=== PATIENT | female | born 1990 | race Caucasian/White ===

== ENCOUNTER → 2017-06-01 | Outpatient (CLI) | payer BC ==
[2017-06-05 06:41] LABS: PROLACTIN 19.3 ng/mL
== END ==
LOC: LAB 07:46
PROVIDERS: ATTEND Obstetrics & Gynecology
DX: Z31.69 Encounter for other general counseling and advice on procreation (principal); N92.6 Irregular menstruation, unspecified; N94.0 Mittelschmerz
CPT/HCPCS: 36415; 82670; 83001; 84146

== ENCOUNTER → 2017-07-03 | Outpatient (CLI) | payer BC ==
--- NOTE | 2017-07-03 13:58 | Procedure/Intervention Note ---
Procedure Note Preoperative Date of Service: Jul 03, 2017 Time of Procedure: 13:10 Indication ovulatory pain, tubal occlusion Risk/Time Out Risk and benefits explained to patient or legal guardian, verbal and written consent given. Time out performed, verified correct patient, correct procedure, correct site, and consent documented. Technique with informed consent, the patient was taken to the radiology suite in stable condition. She was moved to the end of the table and a speculum was placed in the vagina. The cervix was visualized and found to be normal without bleeding or discharge It was cleaned with betadine and then grasped with a tenaculum. os was then entered with a uterine sound. It was found to be slightly tortuous. I then placed the HSG catheter and inflated the balloon. The speculum and the tenaculum was removed from the cervix. I then injected the dye into the uterus. 7 ml used. There was bilateral spillage with no evidence of intrauterine pathology. Patient tolerated the procedure well. Instructions given. Naproxen and ultram called in for 5 days in case of pain and cramping. Prep/Sedation Prepartation: Povidone-iodine Sedation: none Estimated Blood Loss Less than 1 mL: Yes Complications none stable and dc home MARIN SCHWARZ DO Jul 03, 2017 1:58 pm
--- NOTE | 2017-07-03 15:29 | Diagnostic Imaging Report ---
INDICATION: Infertility. FINDINGS: The hysterosalpingogram was performed by Dr. Charlotte Booth. 57 seconds of fluoroscopy time was utilized. Multiple images demonstrate good opacification of the endometrial canal. No filling defects are seen. There is prompt filling of the bilateral fallopian tubes with free spillage of contrast from the fimbrial ends. IMPRESSION: Bilateral fallopian tube patency. Dictated by: Dictated on workstation # [id number]
== END ==
LOC: RAD 12:33
PROVIDERS: ATTEND Obstetrics & Gynecology
DX: N97.1 Female infertility of tubal origin (principal); N94.0 Mittelschmerz
CPT/HCPCS: 58340; 74740

== ENCOUNTER 2018-02-09 13:01 | Emergency (ER) | payer BC ==
[~2018-02-09] VITALS: Ht 165.1 cm; Wt 87.1 kg
--- OUTSIDE RECORDS SUMMARY | 2018-02-09 13:17 | XMS REPORT | Continuity of Care Document ---
Author Author [facility] Organization [facility] Address Unknown Phone Unavailable Allergies Active Description Code Type Severity Reaction Onset Reported/Identified Relationship to Patient Clinical Status Yes No Known Drug Allergies [id number] Drug Allergy Unknown N/A 07/03/2017 Medications There is no data. Problems Date Dx Coded Attending Type Code Diagnosis Diagnosed By 11/26/2014 BI CONNOLLY DO Ot 300.00 ANXIETY STATE NOS 11/26/2014 BI CONNOLLY DO Ot 785.1 PALPITATIONS 06/06/2017 MARIN SCHWARZ DO Ot N92.6 IRREGULAR MENSTRUATION, UNSPECIFIED 06/06/2017 MARIN SCHWARZ DO Ot N94.0 MITTELSCHMERZ 06/06/2017 MARIN SCHWARZ DO Ot Z31.69 ENCOUNTER FOR OTH GENERAL CNSL AND ADVIC 06/13/2017 MARIN SCHWARZ DO Ot N92.6 IRREGULAR MENSTRUATION, UNSPECIFIED 06/13/2017 MARIN SCHWARZ DO Ot N94.0 MITTELSCHMERZ 06/13/2017 MARIN SCHWARZ DO Ot Z31.69 ENCOUNTER FOR OTH GENERAL CNSL AND ADVIC 06/27/2017 MARIN SCHWARZ DO Ot N92.6 IRREGULAR MENSTRUATION, UNSPECIFIED 06/27/2017 MARIN SCHWARZ DO Ot N94.0 MITTELSCHMERZ 06/27/2017 MARIN SCHWARZ DO Ot Z31.69 ENCOUNTER FOR OTH GENERAL CNSL AND ADVIC 07/04/2017 MARIN SCHWARZ DO Ot N94.0 MITTELSCHMERZ 07/04/2017 MARIN SCHWARZ DO Ot 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 Results Test Result Range Serum or plasma estradiol (E2) measurement (mass/volume) - 06/01/17 08:02 Serum or plasma estradiol (E2) measurement (mass/volume) 44 pg/mL NRG Serum gonadotropin panel (FSH, LH) - 06/01/17 08:02 LEUTINIZING HORMONE 4.2 m[iU]/mL NRG Serum or plasma follicle stimulating hormone (FSH) and luteinizing hormone (LH ) panel (units/volume) 6.4 m[iU]/mL NRG Serum or plasma prolactin measurement (mass/volume) - 06/01/17 08:02 Serum or plasma prolactin measurement (mass/volume) 19.3 % NRG Encounters ACCT No. Visit Date/Time Discharge Status Pt. Type Provider Facility Loc./Unit Complaint [id number] 01/29/2018 12:43:00 01/29/2018 23:59:59 CLS Outpatient MARIN SCHWARZ DO [facility] RAD SURVEY [id number] 07/03/2017 12:33:00 07/03/2017 23:59:59 CLS Outpatient MARIN SCHWARZ DO [facility] RAD N97.9 FEMALE INFERTILITY [id number] 06/01/2017 07:46:00 06/01/2017 23:59:59 CLS Outpatient MARIN SCHWARZ DO [facility] LAB Z31.69 N92.6 N94.0 [id number] 11/26/2014 01:18:00 11/26/2014 02:40:00 DIS Emergency BI CONNOLLY DO [facility] ER HEART RACING
[2018-02-09] MEDS ORDERED: NS IV 1000 ML 1,000 ML IV ONE (13:19)
[2018-02-09] MEDS ORDERED: diphenhydrAMINE 25 MG TAB (BENADRYL) PO ONE (13:30)
[2018-02-09 13:50] LABS: BILIRUBIN,URINE NEGATIVE (NEGATIVE); CLARITY,URINE CLEAR; COLOR,URINE YELLOW; GLUCOSE, URINE (UA) NEGATIVE (NEGATIVE); KETONES,URINE NEGATIVE (NEGATIVE); LEUKOCYTE ESTERASE ,URINE 2+ (NEGATIVE); NITRITE,URINE NEGATIVE (NEGATIVE); PH,URINE 8 (5-9); PROTEIN,URINE NEGATIVE (NEGATIVE); UROBILINOGEN,URINE NORMAL (NORMAL)
[2018-02-09 14:04] LABS: BASOPHILS % (AUTO) 0 % (0-10); EOSINOPHILS % (AUTO) 0 % (0-10); HEMATOCRIT 35 % (35-52); HEMOGLOBIN 12.6 G/DL (11.5-16.0); LYMPHOCYTES # (AUTO) 1.8 X 10^3 (1.0-4.0); LYMPHOCYTES % (AUTO) 15 % (12-44); MEAN CORPUSCULAR HEMOGLOBIN 30 PG (25-34); MEAN CORPUSCULAR HGB CONC 36 G/DL (32-36); MEAN CORPUSCULAR VOLUME 84 FL (80-99); MONOCYTES # (AUTO) 0.7 X 10^3 (0.0-1.0); MONOCYTES % (AUTO) 6 % (0-12); NEUTROPHILS # (AUTO) 9.3 X 10^3 (1.8-7.8); NEUTROPHILS % (AUTO) 79 % (42-75); PLATELET COUNT 246 10^3/uL (130-400); RED BLOOD COUNT 4.14 10^6/uL (4.35-5.85); RED CELL DISTRIBUTION WIDTH 13.9 % (10.0-14.5); WHITE BLOOD COUNT 11.8 10^3/uL (4.3-11.0)
--- NOTE | 2018-02-09 14:13 | ED General ---
General Chief Complaint: Cardiac/General Problems Stated Complaint: RACING HEART Nursing Triage Note: AMBULATORY TO ED WITH C/O INCREASED HEART RATE AND PALPITATIONS FOR A WEEK AND A HALF, STATES SHE HAS HX OF ANXIETY AND FEELS VERY ANXIOUS. Nursing Sepsis Screen: No Definite Risk Source of Information: Patient Exam Limitations: No Limitations History of Present Illness Date Seen by Provider: Feb 09, 2018 Time Seen by Provider: 13:05 Initial Comments This 27-year-old young lady at 21 weeks gestational age presents to the emergency room with complaints of palpitations and tachycardia. She is quite anxious and tearful. She denies any chest pain or shortness of breath. She does complain of tightness over her shoulders. She has had long-term problems with anxiety in the seems to be worse with . She was previously on Zoloft and restarted Zoloft you days ago. She is noted to be tachycardic with a heart rate around 110. 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 She has had no cardiac problems since then. Allergies and Home Medications Allergies Coded Allergies: No Known Drug Allergies (Unverified , 07/03/17) Home Medications Cephalexin 500 Mg Capsule, 500 MG PO QID Prescribed by: BRITTANY NORTON on 02/09/18 6037 Patient Home Medication List Home Medication List Reviewed: Yes Review of Systems Review of Systems Constitutional: no symptoms reported EENTM: no symptoms reported Respiratory: no symptoms reported; No short of breath Cardiovascular: see HPI Gastrointestinal: no symptoms reported Genitourinary: no symptoms reported : Yes Musculoskeletal: see HPI Skin: no symptoms reported Psychiatric/Neurological: See HPI Hematologic/Lymphatic: No Symptoms Reported Immunological/Allergic: no symptoms reported Past Vcbnppi-Bdsbni-Tmnsqz Hx Past Med/Social Hx: Reviewed Nursing Past Med/Soc Hx Patient Social History Alcohol Use: Denies Use Recreational Drug Use: No Smoking Status: Never a Smoker Recent Foreign Travel: No Contact w/Someone Who Travel: No Recent Infectious Disease Expo: No Immunizations Up To Date Tetanus Booster (TDap): Unknown Past Medical History Surgeries: Yes (WISDOM TEETH) Respiratory: No Cardiac: Yes (VSD INFANT--CLOSED ON OWN) Neurological: No : Yes (APPROX 21 WEEKS PER PT) Last Menstrual Period: Sep 16, 2017 Reproductive Disorders: No Genitourinary: No Gastrointestinal: Yes Gastroesophageal Reflux Musculoskeletal: No Endocrine: No Cancer: No Psychosocial: Yes Anxiety Integumentary: No Blood Disorders: No Physical Exam Vital Signs Vital Signs - First Documented 02/09/18 02/09/18 13:05 15:07 Temp 98.0 Pulse 112 Resp 22 B/P (MAP) 135/91 (106) Pulse Ox 100 Capillary Refill : Less Than 3 Seconds Height, Weight, BMI Height: 5'5" Weight: 192lbs. oz. 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 Norm as Tested Skin: Normal Color, Warm/Dry Progress/Results/Core Measures Suspected Sepsis Recent Fever Within 48 Hours: No Infection Criteria Present: None New/Unexplained Altered Menta: No Sepsis Screen: No Definite Risk SIRS Temperature:98.0 Pulse: 112 Respiratory Rate: 22 Laboratory Tests 02/09/18 13:52: White Blood Count 11.8H Blood Pressure 135 /91 Mean: 106 Laboratory Tests 02/09/18 13:52: Creatinine 0.69, Platelet Count 246, Total Bilirubin 0.4 Results/Orders Lab Results Laboratory Tests Test 02/09/18 13:39 02/09/18 13:52 Range/Units Urine Color YELLOW Urine Clarity CLEAR Urine pH 8 5-9 Urine Specific [place] 1.015 L 1.016-1.022 Urine Protein NEGATIVE NEGATIVE Urine Glucose (UA) NEGATIVE NEGATIVE Urine Ketones NEGATIVE NEGATIVE Urine Nitrite NEGATIVE NEGATIVE Urine Bilirubin NEGATIVE NEGATIVE Urine Urobilinogen NORMAL NORMAL MG/DL Urine Leukocyte Esterase 2+ H NEGATIVE Urine RBC (Auto) NEGATIVE NEGATIVE Urine RBC NONE /HPF Urine WBC NONE /HPF Urine Squamous Epithelial Cells 0-2 /HPF Urine Crystals NONE /LPF Urine Bacteria MODERATE H /HPF Urine Casts NONE /LPF Urine Mucus NEGATIVE /LPF Urine Culture Indicated YES White Blood Count 11.8 H 4.3-11.0 10^3/uL Red Blood Count 4.14 L 4.35-5.85 10^6/uL Hemoglobin 12.6 11.5-16.0 G/DL Hematocrit 35 35-52 % Mean Corpuscular Volume 84 80-99 FL Mean Corpuscular Hemoglobin 30 25-34 PG Mean Corpuscular Hemoglobin Concent 36 32-36 G/DL Red Cell Distribution Width 13.9 10.0-14.5 % Platelet Count 246 130-400 10^3/uL Mean Platelet Volume 10.0 7.4-10.4 FL Neutrophils (%) (Auto) 79 H 42-75 % Lymphocytes (%) (Auto) 15 12-44 % Monocytes (%) (Auto) 6 0-12 % Eosinophils (%) (Auto) 0 0-10 % Basophils (%) (Auto) 0 0-10 % Neutrophils # (Auto) 9.3 H 1.8-7.8 X 10^3 Lymphocytes # (Auto) 1.8 1.0-4.0 X 10^3 Monocytes # (Auto) 0.7 0.0-1.0 X 10^3 Eosinophils # (Auto) 0.0 0.0-0.3 10^3/uL Basophils # (Auto) 0.0 0.0-0.1 10^3/uL Sodium Level 137 135-145 MMOL/L Potassium Level 3.8 3.6-5.0 MMOL/L Chloride Level 108 H 98-107 MMOL/L Carbon Dioxide Level 17 L 21-32 MMOL/L Anion Gap 12 5-14 MMOL/L Blood Urea Nitrogen 7 7-18 MG/DL Creatinine 0.69 0.60-1.30 MG/DL Estimat Glomerular Filtration Rate > 60 BUN/Creatinine Ratio 10 Glucose Level 104 70-105 MG/DL Calcium Level 9.2 8.5-10.1 MG/DL Corrected Calcium 9.2 8.5-10.1 MG/DL Total Bilirubin 0.4 0.1-1.0 MG/DL Aspartate Amino Transf (AST/SGOT) 12 5-34 U/L Alanine Aminotransferase (ALT/SGPT) 19 0-55 U/L Alkaline Phosphatase 42 40-136 U/L Total Protein 6.9 6.4-8.2 GM/DL Albumin 4.0 3.2-4.5 GM/DL My Orders Orders - BRITTANY KELLER MD Cbc With Automated Diff (02/09/18 13:19) Comprehensive Metabolic Panel (02/09/18 13:19) Saline Lock/Iv-Start (02/09/18 13:19) Ns Iv 1000 Ml (Sodium Chloride 0.9%) (02/09/18 13:19) Ua Culture If Indicated (02/09/18 13:19) Ekg Tracing (02/09/18 13:19) Monitor-Rhythm Ecg Trace Only (02/09/18 13:19) Diphenhydramine Tablet (Benadryl Tablet) (02/09/18 13:30) Urine Culture (02/09/18 13:39) Medications Given in ED Vital Signs/I&O 02/10/18 00:00 Intake Total 1000 ml Balance 1000 ml Capillary Refill : Less Than 3 Seconds Blood Pressure Mean: 106 Progress Note #1: Progress Note Patient and I both agree that her symptoms are likely due to anxiety. However, she does have a cardiac history with the VSD. As a precaution we will check basic labs and an EKG. I will hydrate her with liter of IV fluid. We will treat her anxiety with some Benadryl as this works to make her drowsy historically. We will reassess when labs return. Progress Note #2: Progress Note Labs were reviewed. Patient felt better after IV fluids and Benadryl. Heart rate was trending down. There was questionable urinary tract infection identified by urinalysis. Antibiotics were prescribed. ECG Initial ECG Impression Date: Feb 09, 2018 Initial ECG Impression Time: 13:30 Initial ECG Rate: 91 Initial ECG Rhythm: Normal Sinus Initial ECG Impression: Normal Comment Normal sinus rhythm with no ST elevation or depression. No abnormal intervals or axis deviation. Departure Impression Primary Impression: Anxiety Additional Impressions: Palpitations Tachycardia Urinary tract infection Qualified Codes: N39.0 - Urinary tract infection, site not specified Disposition: 01 HOME, SELF-CARE Condition: Improved Departure-Patient Inst. Decision time for Depature: 14:54 Referrals: PRANAV LUNA MD (PCP/Family) Primary Care Physician Patient Instructions: Anxiety, Adult (DC), Palpitations, Urinary Tract Infections in Adults Add. Discharge Instructions: Follow-up with your doctors next week. Return to care if symptoms worsen. Complete your antibiotics as prescribed unless otherwise directed. Drink plenty of clear liquids. You may use Benadryl (diphenhydramine) up to 50 mg every 4 hours as needed for anxiety. Try to exercise, eat a well-balanced diet , and avoid unnecessary stress triggers. Avoid consumption of caffeine as well. All discharge instructions reviewed with patient and/or family. Voiced understanding. Scripts Cephalexin (Keflex) 500 Mg Capsule 500 MG PO QID, #28 CAP Prov: BRITTANY KELLER MD 02/09/18 Copy Copies To 1: PRANAV LUNA MD Copies To 2: MARIN SCHWARZ JOSHUA T MD Feb 09, 2018 14:13
[2018-02-09 14:17] LABS: BACTERIA,URINE MODERATE /HPF; SQUAMOUS EPITHELIAL CELL,UR 0-2 /HPF
[2018-02-09 14:21] LABS: ALANINE AMINOTRANSFERASE 19 U/L (0-55); ALKALINE PHOSPHATASE 42 U/L (40-136); BILIRUBIN,TOTAL 0.4 MG/DL (0.1-1.0); BUN/CREATININE RATIO 10; CALCIUM 9.2 MG/DL (8.5-10.1); CARBON DIOXIDE 17 MMOL/L (21-32); CHLORIDE 108 MMOL/L (98-107); CREATININE SERUM 0.69 MG/DL (0.60-1.30); GFR ESTIMATED > 60; GLUCOSE 104 MG/DL (70-105); POTASSIUM 3.8 MMOL/L (3.6-5.0); SODIUM 137 MMOL/L (135-145); TOTAL PROTEIN 6.9 GM/DL (6.4-8.2)
[2018-02-09] MEDS ORDERED: CEPH-507 PO (14:58)
[2018-02-09 15:07] VITALS: BP 135/91
== END 2018-02-09 15:08 | disposition home or self-care (01) ==
LOC: EDUNIT# 13:01 → ER 13:02
DX: O99.342 Other mental disorders complicating pregnancy, second trimester (principal); F41.9 Anxiety disorder, unspecified; O23.42 Unspecified infection of urinary tract in pregnancy, second trimester; O26.892 Other specified pregnancy related conditions, second trimester; R00.2 Palpitations; R00.0 Tachycardia, unspecified; O99.612 Diseases of the digestive system complicating pregnancy, second trimester; K21.9 Gastro-esophageal reflux disease without esophagitis; Z3A.21 21 weeks gestation of pregnancy
CPT/HCPCS: 36415; 80053; 81000; 85025; 87088; 93005; 93041; 96360

== ENCOUNTER → 2018-03-04 | Outpatient (CLI) | payer BC ==
[~2018-03-04] MED LIST: CEPH-507 PO
== END ==
LOC: CARD 08:45
PROVIDERS: ATTEND Internal Medicine Interventional Cardiology
DX: R00.2 Palpitations (principal); Q21.0 Ventricular septal defect
CPT/HCPCS: 93306

== ENCOUNTER 2018-03-05 08:00 | Outpatient (RCR) | payer BC | END 2018-03-10 | disposition home or self-care (01) | LOC: CARD 08:00 | PROVIDERS: ATTEND Internal Medicine Interventional Cardiology | DX: R00.2 Palpitations (principal); Q21.0 Ventricular septal defect | CPT/HCPCS: 93225; 93226 ==

== ENCOUNTER 2018-06-11 04:07 | Inpatient (IN) | payer MEDICAID, BC | END 2018-06-13 12:35 | disposition home or self-care (01) | LOC: WSo 04:07 → LDRP 04:07 → WSo 04:22 → LDRP 04:23 ==

== ENCOUNTER → 2019-09-08 | Outpatient (CLI) | payer MEDICAID ==
[~2019-09-08] MED LIST changes: +ACHD5005 PO; +DOCU100C37 PO; +FERR-84 PO; +IBUP-844 PO; +MAGN200T8 PO; +PREN-54 PO; +SERT50TA2 PO
--- NOTE | 2019-09-08 14:49 | Diagnostic Imaging Report ---
INDICATION: survey. TECHNIQUE: Multiple real-time grayscale images were obtained over the gravid uterus. COMPARISON: None FINDINGS: There is a single live fetus in a cephalic presentation. heart rate was recorded at 152 bpm. Placenta is to the right. Amniotic fluid volume appears normal. survey demonstrates kidneys, bladder and stomach to be unremarkable. brain does show lateral ventricles to be minimally prominent measuring 11 mm on both right and left. There is a four-chamber heart. There is a three-vessel cord with normal insertion. The spine is unremarkable. Biometrical measurements are as follows: Biparietal 4.85 cm, age 20 weeks 5 days. Head circumference 18.15 cm, age 20 weeks 4 days. Abdominal circumference 16.48 cm, age 21 weeks 4 days. Femur length 3.56 cm, age 21 weeks 2 days. Sonographic estimate age: 21 weeks 1 days. Sonographic estimated date of delivery: 01/20/20. Estimated Weight: 413 gm (+/- 60 gm). LMP percentile: 04/15/19%. heart rate: 152 beats per minute. number: 1 of 1. IMPRESSION: Single live IUP approximately 21 weeks 1 day gestational age with estimated date of confinement sonographically of 01/20/2020. survey does show very minimally prominent lateral ventricles within the brain. Follow-up ultrasound would be recommended. Dictated by: Dictated on workstation # [id number]
== END ==
LOC: RAD 09:47
PROVIDERS: ATTEND Obstetrics & Gynecology
DX: Z34.92 Encounter for supervision of normal pregnancy, unspecified, second trimester (principal); Z3A.21 21 weeks gestation of pregnancy
CPT/HCPCS: 76805

== ENCOUNTER → 2019-10-07 | Outpatient (CLI) | payer MEDICAID ==
--- NOTE | 2019-10-07 11:28 | Diagnostic Imaging Report ---
INDICATION: Followup anatomical survey. TECHNIQUE: Multiple Real-time grayscale images were obtained over the gravid uterus. COMPARISON: None. FINDINGS: The intracranial lateral ventricles have decreased in caliber with the left 5.3 mm and right 9.9 mm. Previously, these measured 11 mm bilaterally. There has been no adverse interval development. Cephalic positioning is maintained. The amniotic fluid index is 12.7, within normal limits. The placenta is posterior and eccentric to the right without previa. The heart rate is 150 BPM. IMPRESSION: Reduction in lateral ventricular calibers with no adverse development. Biometrical measurements are as follows: Biparietal 6.34 cm, age 25 weeks 5 days. Head circumference 22.64 cm, age 24 weeks 5 days. Abdominal circumference 20.47 cm, age 25 weeks 1 days. Femur length 4.67 cm, age 25 weeks 4 days. Sonographic estimate age: 25 weeks 2 days. Sonographic estimated date of delivery: 01/18/2020. Estimated Weight: 786 gm (+/- 115 gm). LMP percentile: 50%. heart rate: 158 beats per minute. number: 1 of 1. Dictated by: Dictated on workstation # [id number]
== END ==
LOC: RAD 09:51
PROVIDERS: ATTEND Obstetrics & Gynecology
DX: O28.3 Abnormal ultrasonic finding on antenatal screening of mother (principal); Z3A.25 25 weeks gestation of pregnancy
CPT/HCPCS: 76805

== ENCOUNTER → 2019-11-04 | Outpatient (CLI) | payer MEDICAID ==
--- NOTE | 2019-11-04 13:19 | Diagnostic Imaging Report ---
INDICATION: Prominent ventricles. Study is performed for follow-up. TECHNIQUE: Multiple real-time grayscale images were obtained over the gravid uterus. COMPARISON: 10/07/2019. FINDINGS: There is single live fetus in a cephalic presentation. heart rate was recorded at 150 bpm. Placenta is to the right. Cervical length is 3.8 cm. The ventricles appear to be normal in size. No ventricular dilatation is seen. IMPRESSION: Unremarkable limited obstetrical ultrasound. Dictated by: Dictated on workstation # [id number]
== END ==
LOC: RAD 10:12
PROVIDERS: ATTEND Obstetrics & Gynecology
DX: O28.3 Abnormal ultrasonic finding on antenatal screening of mother (principal); Z3A.27 27 weeks gestation of pregnancy
CPT/HCPCS: 76816

== ENCOUNTER 2020-01-06 05:44 | Outpatient (RCR) | payer MEDICAID ==
[~2020-01-06] VITALS: Ht 165 cm; Wt 95.4 kg
[2020-01-06] MEDS ORDERED: SERT100T PO (10:24)
== END 2020-01-06 14:16 | disposition home or self-care (01) ==
LOC: PREOP 05:44
PROVIDERS: ATTEND Obstetrics & Gynecology
DX: Z01.818 Encounter for other preprocedural examination (principal)

== ENCOUNTER 2020-01-13 09:00 | Inpatient (IN) | payer MEDICAID ==
[2020-01-13] VITALS (13 sets, daily range): BP systolic 98–122; BP diastolic 64–84
[~2020-01-13] VITALS: Ht 165.1 cm; Wt 95.3 kg
[~2020-01-13 09:00] MED LIST changes: +SERT100T PO
--- NOTE | 2020-01-13 10:00 | NUR ---
FATIMAH RINCON presented to unit via from home, accompanied by spouse, for repeat section. FATIMAH RINCON weighed, gowned, voided, and to bed. EFHM and TOCO applied, VS taken. FATIMAH RINCON oriented to bed controls, call light, TV, heat, and A/C controls.
[2020-01-13] MEDS: LACTATED RINGERS 1,000 ML IV PRN ×2 (10:35→11:19)
[2020-01-13] MEDS ORDERED: ceFAZolin INJECTION 1,000 MG in WATER (STERILE) FOR INJECTION 10 ML IV ONE (10:45)
--- NOTE | 2020-01-13 10:52 | NUR ---
SRNA AT BEDSIDE TALKING TO PT.
[2020-01-13] MEDS ORDERED: LACTATED RINGERS 1,000 ML IV PRN (10:53)
[2020-01-13] MEDS ORDERED: CITRIC ACID/SOB CIT (BICITRA) 30 ML UDC PO ONE (11:00)
[2020-01-13] MEDS ORDERED: METOCLOPRAMIDE INJ 10 MG/2 ML (REGLAN) IV ONE (11:00)
[2020-01-13] MEDS ORDERED: FAMOTIDINE 20MG/2ML IV (PEPCID) IV ONE (11:00)
[2020-01-13] MEDS ORDERED: CATHETER FLUSH 10 ML SYR IV PRN (11:00)
[2020-01-13 11:01] LABS: BASOPHILS % (AUTO) 0 % (0-10); EOSINOPHILS % (AUTO) 0 % (0-10); HEMATOCRIT 36 % (35-52); HEMOGLOBIN 11.5 G/DL (11.5-16.0); LYMPHOCYTES % (AUTO) 18 % (12-44); MEAN CORPUSCULAR HEMOGLOBIN 25 PG (25-34); MEAN CORPUSCULAR HGB CONC 32 G/DL (32-36); MEAN CORPUSCULAR VOLUME 77 FL (80-99); MEAN PLATELET VOLUME 10.9 FL (7.4-10.4); MONOCYTES # (AUTO) 0.7 X 10^3 (0.0-1.0); MONOCYTES % (AUTO) 7 % (0-12); NEUTROPHILS # (AUTO) 8.5 X 10^3 (1.8-7.8); NEUTROPHILS % (AUTO) 75 % (42-75); PLATELET COUNT 214 10^3/uL (130-400); RED CELL DISTRIBUTION WIDTH 19.2 % (10.0-14.5); WHITE BLOOD COUNT 11.2 10^3/uL (4.3-11.0)
--- NOTE | 2020-01-13 11:07 | History & Physical-OB ---
OB - Chief Complaint & HPI Date/Time Date of Admission: Date of Admission: Jan 13, 2020 at 9:59 am Date seen by a Provider: Jan 13, 2020 Time Seen by a Provider: 11:45 Chief Complaint/History OB-Reason for Admission/Chief: Section Hx : 2 Hx Para: 1 Expected Date of Delivery: Jan 20, 2020 Gestational Age in Weeks: 39 Gestational Age in Days: 0 Indication for : desires repeat Admission Nurse Assessment Rev: Yes History of Labs B pos Antibody neg RI RPR NR HBsAg NR HIV NR GC neg GBS neg Allergies and Home Medications Allergies Coded Allergies: No Known Drug Allergies (Unverified , 01/06/20) Home Medications Ferrous Sulfate 325 Mg Tablet, 325 MG PO DAILY, (Reported) Pnv No.118/Iron Fumarate/FA 1 Each Tab.chew, 1 EACH PO DAILY, (Reported) Sertraline HCl 100 Mg Tablet, 100 MG PO DAILY, (Reported) Patient Home Medication List Home Medication List Reviewed: Yes OB - History Hx of Present Care: Yes Ultrasounds: Normal mid trimester US Obstetrical Complications: None Medical Complications: None Delivery History Hx Blood Disorders: No Adverse Rxn to Tranfusion: No (N/A) Patient Past Medical History anxiety Social History/Family History HIV/AIDS: No Sexually Transmitted Disease: No Immunizations Hepatitis A: Yes Hepatitis B: Yes Tetanus Booster (TDap): Unknown Date of Influenza Vaccine: Mar 11, 2018 OB - Admission Exam Physical Exam HEENT: NCAT Heart: Rhythm Normal Lungs: Clear Abdomen: Gravid Extremities: Normal Reflexes: Normal Heart Rate: 130's Accelerations: Accelerations Present Decelerations: No Decelerations Short Term Variability: Present Detention Variability: Average (6-25) Contractions on Admission: >10 Minutes Apart Intensity: Mild Labs Laboratory Tests Test 01/13/20 10:35 Range/Units White Blood Count 11.2 H 4.3-11.0 10^3/uL Red Blood Count 4.66 4.35-5.85 10^6/uL Hemoglobin 11.5 11.5-16.0 G/DL Hematocrit 36 35-52 % Mean Corpuscular Volume 77 L 80-99 FL Mean Corpuscular Hemoglobin 25 25-34 PG Mean Corpuscular Hemoglobin Concent 32 32-36 G/DL Red Cell Distribution Width 19.2 H 10.0-14.5 % Platelet Count 214 130-400 10^3/uL Mean Platelet Volume 10.9 H 7.4-10.4 FL Neutrophils (%) (Auto) 75 42-75 % Lymphocytes (%) (Auto) 18 12-44 % Monocytes (%) (Auto) 7 0-12 % Eosinophils (%) (Auto) 0 0-10 % Basophils (%) (Auto) 0 0-10 % Neutrophils # (Auto) 8.5 H 1.8-7.8 X 10^3 Lymphocytes # (Auto) 2.0 1.0-4.0 X 10^3 Monocytes # (Auto) 0.7 0.0-1.0 X 10^3 Eosinophils # (Auto) 0.0 0.0-0.3 10^3/uL Basophils # (Auto) 0.0 0.0-0.1 10^3/uL OB - Assessment/Plan/Diagnosis Assessment Assessment: section Admission Dx 29 yo @ 39 weeks Previous GBS neg Admission Status: Inpatient Order (span 2 midnights) Reason for Inpatient Admission: Repeat Plan Plan: Section LEA BECK DO Jan 13, 2020 11:07 am
[2020-01-13] MEDS ORDERED: OXYTOCIN PRE-MIX DRIP 1,000 ML IV ONE (11:11)
[2020-01-13] MEDS ORDERED: fentaNYL INJECTION 100 MCG/2 ML AMP ONE (11:12)
[2020-01-13] MEDS ORDERED: ONDANSETRON 4 MG/2 ML (SDV) Z0FRAN ONE (11:33)
[2020-01-13] MEDS ORDERED: BUPIVACAINE 0.5% 30 ML (SENSORCAINE) VIAL ONE (11:33)
--- NOTE | 2020-01-13 12:14 | NUR ---
DR. BECK IN ROOM TO SEE PT.
--- NOTE | 2020-01-13 12:23 | NUR ---
EFM OFF. TO OB OR AMB ACC BY OR RNS X2 FOR REPEAT SECTION BY DR. BECK.
--- OUTSIDE RECORDS SUMMARY | 2020-01-13 12:51 | XMS REPORT ---
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 Encounters No Information Medical Equipment No Information Goals No Information Immunizations The data below is from unstructured sourcesNo immunization records. Interventions No Information Medications The data below is from unstructured sourcesNo known medications. Payers No Information Plan of Treatment The data below is from unstructured sourcesNo plan of care. Problems No Information Procedures No Information Results No Information Social History No Information Vital Signs The data below is from unstructured sources Vital Response Date/Time Temperature (Fahrenheit) 98.6 degree s F (97.6 - 99.5) Temperature (Calculated Celsius) 37. 03652 degrees C (36.4 - 37.5) Temperature Source Temporal Pulse Rate (adult) 112 bpm (60 - 90) Respiratory Rate 17 bpm (12 - 24) O2 Sat by Pulse Oximetry 99 % (88 - 100) Blood Pressure 146/93 mm Hg Pain Pain Intensity 0 Height (Feet) 5 feet Height (Inches) 5 inches Height (Calculated Centimeters) 165. 575576 cm Weight (Pounds) 180 pounds Weight (Calculated Kilograms) 81.646 627 kilograms Calculated BMI 29.95 Functional Status The data below is from unstructured sourcesNo functional status results. Mental Status No Information Advance Directives Directive Response Recor ded Date/Time Advance Directives No 1:25am Resuscitation Status Full Code 11/26/14 1:25am Discharge Instructions No hospital discharge instructions. Additional Source Comments This clinical document has been generated using [employer] software that has been certified by the Office of the National Coordinator for Health Information Technology (ONC 15.99.04.3023.Diam.31.00.0.718280) and the National Committee for [employer] (NCQA, as an eMeasure certified technology). FOR RECORDS PERTAINING TO PATIENTS WHO ARE OR HAVE BEEN ENROLLED IN A CHEMICAL D EPENDENCY/SUBSTANCE ABUSE PROGRAM, SOME INFORMATION MAY BE OMITTED. This clinica l summary was aggregated from multiple sources. Caution should be exercised in using it in the provision of clinical care. This summary normalizes information from multiple sources, and as a consequence, information in this document may ma terially change the coding, format and clinical context of patient data. In mike tion, data may be omitted in some cases. CLINICAL DECISIONS SHOULD BE BASED ON T HE PRIMARY CLINICAL RECORDS. [facility] [employer] [facility]. provides no warranty or guara ntee of the accuracy or completeness of information in this document.The followi information is based on time limited clinical information
[2020-01-13] MEDS ORDERED: KETOROLAC 30 MG/ML VIAL ONE (13:06)
[2020-01-13] MEDS ORDERED: OXYTOCIN PRE-MIX DRIP 500 ML IV SCH (13:29)
[2020-01-13] MEDS ORDERED: TETANUS,DIPTH,PERTUSS P/F (BOOSTRIX) 0.5 ML VIAL IM SCH (13:30)
[2020-01-13] MEDS ORDERED: HYDROcodone/APAP 5 MG/325 MG (LORTAB) TAB PO PRN (13:30)
[2020-01-13] MEDS ORDERED: MEASLES,MUMPS,RUBELLA 1 EA INJ SC SCH (13:30)
[2020-01-13] MEDS ORDERED: ONDANSETRON 4 MG/2 ML (SDV) Z0FRAN IVP PRN (13:30)
[2020-01-13] MEDS ORDERED: CATHETER FLUSH 10 ML SYR IV SCH (14:00)
--- NOTE | 2020-01-13 14:00 | NUR ---
Leslie assumed by this LOW Addendum: 01/13/20 at 1821 by ARIANA LEARY RN Time is error. Event happened at 1500.
--- NOTE | 2020-01-13 16:06 | OPERATIVE REPORT ---
DATE OF SERVICE: PREOPERATIVE DIAGNOSES: 1. A 29-year-old G2, P1 at 39 weeks gestation. 2. Previous section. POSTOPERATIVE DIAGNOSES: 1. A 29-year-old G2, P1 at 39 weeks gestation. 2. Previous section. PROCEDURE PERFORMED: Repeat low transverse section. SURGEON: Eitan Lucero DO. 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 ANESTHESIA: Spinal. ESTIMATED BLOOD LOSS: 300 mL. URINE OUTPUT: 45 mL clear at the end of the procedure. FLUIDS: 700 mL lactated Ringer's solution. FINDINGS: A live male weighing 8 pounds 14 ounces, Apgars of 8 and 9. Grossly normal appearing uterus, bilateral fallopian tubes and ovaries. SPECIMEN SENT: None. INDICATIONS FOR PROCEDURE: This 29-year-old female is a patient, who had sought care with Dr. Larkin throughout her , was uncomplicated. She did desire to proceeding repeat . Risks of this was reviewed with the patient in the preoperative area. After all of her questions were answered with her present, consent was obtained and the patient was taken to the operating room. OPERATIVE REPORT IN DETAIL: Once in the operating room and after spinal analgesia was found to be adequate, she was placed in a supine position with leftward tilt and prepped and draped in a normal sterile fashion, at which point, anesthesia was tested. I then made a Pfannenstiel skin incision through the previously existing scar using knife and carried down to the underlying fascia using Bovie cautery. Fascial incision was extended laterally using Bovie cautery. Superior aspect of fascial incision was then grasped with Cindy clamps, tented up and dissected off the underlying rectus muscles. The inferior aspect of fascial incision was then grasped with Cindy clamps, tented up and dissected off the underlying rectus muscles. Rectus muscles were then dissected down the midline using Medrano scissors, which exposed the peritoneum, which I entered bluntly and extended using blunt traction. I then placed an Richy ring retractor in the peritoneal incision, which offers excellent lateral sidewall retraction. I proceeded with identifying the lower uterine segment, which was found to be thinned out. I made a low transverse incision to the vesicouterine peritoneum and bluntly dissected off the lower uterine segment. I then proceeded with my myotomy until membranes were visualized, at which point, I extended the uterine incision laterally and superiorly using bandage scissors. Amniotomy was performed and clear fluid was noted. With gentle fundal pressure, the infant's head was elevated up the incision, where it was delivered through the incision. The nares and oropharynx were bulb suctioned. Anterior and posterior shoulders were delivered. The infant was then brought to the operative field where the cord was doubly clamped and cut and was handed off to waiting nurses in attendance. Cord blood was collected. Three-vessel cord with intact placenta was delivered spontaneously thereafter. IV Pitocin was initiated to facilitate uterine contraction. Uterine fundus became firmer with bimanual massage. Uterus was then exteriorized and cleared of all endometrial clots and debris. I then proceeded to close the uterine incision using 0 Vicryl suture in a running locked fashion. Second layer of imbricating 0 Monocryl was placed. Excellent hemostasis was noted after doing this. I then copiously irrigated the pelvis using normal saline. There was no active bleeding noted from any of my dissection planes. I placed Interceed antiadhesive over my low transverse incision proceeded with closing the peritoneum after removing the Richy ring retractor. The peritoneum was reapproximated using 0 Vicryl suture in a running fashion. The rectus muscles were reapproximated using 3-0 Vicryl suture in an interrupted fashion. The fascia was reapproximated using 0 Vicryl suture in a running fashion. Subcutaneous tissue was reapproximated using 3-0 plain in a interrupted subcutaneous stitch and the skin was reapproximated using 4-0 Monocryl running subcuticular. Dermabond was applied to incision and sterile dressing with adhesive white tape. The patient tolerated the procedure well and sent to recovery area in stable condition. Lap and sponge were correct at the end of the procedure. Instrument counts correct as well. Two grams of Ancef were given preoperatively for infection prophylaxis. Job ID: [id number] DocumentID: [id number] Dictated Date: 01/13/2020 13:25:25 Cuff Slitter Date: 01/13/2020 16:05:22 Dictated By: DO JACOB STANFORD
--- NOTE | 2020-01-13 20:00 | NUR ---
INITIAL SHIFT ASSESSMENT DONE. VSS. PT DENIES ANY PAIN OR NEEDS.
[2020-01-13] MEDS: KETOROLAC 30 MG/ML VIAL IV SCH (21:42)
[2020-01-13] MEDS: DOCUSATE SODIUM 100 MG (COLACE) CAP PO SCH (21:43)
--- NOTE | 2020-01-14 00:35 | NUR ---
PT SITTING UP PREPARING TO FEED . DENIES ANY PAIN OR NEEDS.
[2020-01-14 00:37] VITALS: BP 129/85
--- NOTE | 2020-01-14 04:10 | NUR ---
SCHEDULED TORADOL ADMINISTERED.
[2020-01-14 04:16] VITALS: BP 133/83
[2020-01-14] MEDS: KETOROLAC 30 MG/ML VIAL IV SCH (04:21)
[2020-01-14 05:01] LABS: BASOPHILS % (AUTO) 0 % (0-10); EOSINOPHILS % (AUTO) 0 % (0-10); HEMATOCRIT 31 % (35-52); HEMOGLOBIN 9.9 G/DL (11.5-16.0); LYMPHOCYTES # (AUTO) 2.1 X 10^3 (1.0-4.0); LYMPHOCYTES % (AUTO) 20 % (12-44); MEAN CORPUSCULAR HEMOGLOBIN 25 PG (25-34); MEAN CORPUSCULAR HGB CONC 32 G/DL (32-36); MEAN CORPUSCULAR VOLUME 78 FL (80-99); MEAN PLATELET VOLUME 10.2 FL (7.4-10.4); MONOCYTES # (AUTO) 0.6 X 10^3 (0.0-1.0); MONOCYTES % (AUTO) 6 % (0-12); NEUTROPHILS # (AUTO) 7.8 X 10^3 (1.8-7.8); NEUTROPHILS % (AUTO) 74 % (42-75); PLATELET COUNT 172 10^3/uL (130-400); RED CELL DISTRIBUTION WIDTH 19.8 % (10.0-14.5); WHITE BLOOD COUNT 10.6 10^3/uL (4.3-11.0)
--- NOTE | 2020-01-14 06:15 | NUR ---
DRESSING AND IV REMOVED AT THIS TIME. PT DENIES ANY NEEDS.
--- NOTE | 2020-01-14 07:25 | Postpartum Progress Note ---
Note Note Day # 1 Subjective: Patient is without complaints. Ambulating, voiding. Tolerating a regular diet without nausea or vomiting. Normal lochia. Pain is well controlled with oral pain medications. Objective: Physical Exam: General - Alert and oriented, no apparent distress Abdomen - Soft, appropriately tender to palpation, non-distended, fundus firm at umbilicus Extremities - no edema, negative Vincent's bilaterally Incision- c/d/i Assessment: POD 1 RLTCS Acute blood loss anemia Plan: Routine care. Encourage breast feeding. Encourage ambulation. Ferrous sulfate supplementation. Plan for discharge tomorrow Vitals - Labs Vital Signs - I&O Vital Signs Date Time Temp Pulse Resp B/P (MAP) Pulse Ox O2 Delivery O2 Flow Rate FiO2 01/14/20 04:16 36.6 78 16 133/83 (100) 100 Room Air 01/14/20 00:37 36.6 88 16 129/85 (100) 99 Room Air 01/13/20 20:00 37.1 90 18 122/84 (97) 99 Room Air 01/13/20 18:09 37.2 90 18 120/69 (86) 97 Room Air 01/13/20 15:15 36.8 72 18 111/64 (80) 100 Room Air 01/13/20 14:45 Room Air 01/13/20 14:45 36.5 14 104/67 (79) 100 Room Air 01/13/20 14:35 36.5 14 113/78 (90) 100 Room Air 01/13/20 14:30 Room Air 01/13/20 14:25 36.7 14 109/74 (86) 100 Room Air 01/13/20 14:15 Room Air 01/13/20 14:15 36.7 16 107/78 (88) 100 Room Air 01/13/20 14:05 36.6 14 106/84 (91) 100 Room Air 01/13/20 14:00 Room Air 01/13/20 13:55 36.3 14 104/78 (87) 100 Room Air 01/13/20 13:40 36.3 12 98/74 (82) 100 Room Air 01/13/20 13:40 Room Air 01/13/20 11:51 36.5 91 18 120/67 (84) Room Air 01/13/20 11:00 37.1 87 18 97 Room Air 01/13/20 11:00 Room Air 01/13/20 10:10 37.1 87 18 122/72 (89) 97 Room Air I & O 01/14/20 07:00 Intake Total 10 ml Output Total 45 ml Balance -35 ml Labs Laboratory Tests 01/13/20 10:35: White Blood Count 11.2H, Red Blood Count 4.66, Hemoglobin 11.5, Hematocrit 36, Mean Corpuscular Volume 77L, Mean Corpuscular Hemoglobin 25, Mean Corpuscular Hemoglobin Concent 32, Red Cell Distribution Width 19.2H, Platelet Count 214, Mean Platelet Volume 10.9H, Neutrophils (%) (Auto) 75, Lymphocytes (%) (Auto) 18, Monocytes (%) (Auto) 7, Eosinophils (%) (Auto) 0, Basophils (%) (Auto) 0, Neutrophils # (Auto) 8.5H, Lymphocytes # (Auto) 2.0, Monocytes # (Auto) 0.7, Eosinophils # (Auto) 0.0, Basophils # (Auto) 0.0 01/14/20 04:38: White Blood Count 10.6, Red Blood Count 3.97L, Hemoglobin 9.9L, Hematocrit 31L, Mean Corpuscular Volume 78L, Mean Corpuscular Hemoglobin 25, Mean Corpuscular Hemoglobin Concent 32, Red Cell Distribution Width 19.8H, Platelet Count 172, Mean Platelet Volume 10.2, Neutrophils (%) (Auto) 74, Lymphocytes (%) (Auto) 20, Monocytes (%) (Auto) 6, Eosinophils (%) (Auto) 0, Basophils (%) (Auto) 0, Neutrophils # (Auto) 7.8, Lymphocytes # (Auto) 2.1, Monocytes # (Auto) 0.6, Eosinophils # (Auto) 0.0, Basophils # (Auto) 0.0 Microbiology 01/13/20 MRSA Screen - Final, Complete MRSA not isolated LEA BECK DO Jan 14, 2020 07:25
[2020-01-14] MEDS ORDERED: HYDR-3812 PO (07:27)
[2020-01-14] MEDS ORDERED: DCS100C PO (07:27)
[2020-01-14] MEDS ORDERED: IBUP-844 PO (07:27)
--- NOTE | 2020-01-14 07:28 | Discharge Inst-Women's Service ---
Discharge Inst-Women's Serv Depart Medication/Instructions New, Converted or Re-Newed RX: RX on Chart Final Diagnosis POD 2 RLTCS Problems Reviewed?: Yes Consults/Follow Up Additional Follow Up: Yes Orders/Referrals Dr. Lucero in 7-[address] Booth in 6 weeks Activity Activity: Activity as Tolerated Driving Instructions: No Driving for 1 Week NO SMOKING: NO SMOKING Nothing Inside Vagina: No Douching, No [place], No Tampons Diet Discharge Diet: No Restrictions Symptoms to Report to : Bleeding Excessive, Pain Increased, Fever Over 101 Degrees F, Vaginal Bleeding Increase, Questions/Concerns For Any Problems or Questions: Contact Your Physician Skin/Wound Care Infection Signs and Symptoms: Increased Redness, Foul Odor of Wound, Increased Drainage, Skin Itchy or Has a Rash, Increased Swelling, Temperature Above 101 F Operative Area Clean and Dry: Keep Incision Clean/Dry Stitches/[place]/Dermabond: Dermabond, Care of Stitches Bathing Instructions: LEA Wilson DO Jan 14, 2020 07:28
[2020-01-14 08:30] VITALS: BP 119/77
--- NOTE | 2020-01-14 08:30 | NUR ---
A.M. ASSESSMENT COMPLETED. VSS. CARING FOR IN ROOM. GOOD INTERACTION NOTED.
[2020-01-14] MEDS: DOCUSATE SODIUM 100 MG (COLACE) CAP PO SCH ×2 (08:57→21:34)
[2020-01-14] MEDS ORDERED: IBUPROFEN 800 MG (MOTRIN) TAB PO ONE (09:58)
--- NOTE | 2020-01-14 10:00 | NUR ---
NO CHANGE IN STATUS. ENCOURAGED AMBULATION IN THE MAC X4 TODAY. ENCOURAGED I.S. Q 2HOUR W/A.
[2020-01-14] MEDS: IBUPROFEN 600 MG (MOTRIN) TAB PO SCH ×3 (10:04→21:34)
--- NOTE | 2020-01-14 13:00 | NUR ---
EATING STORK MEAL. AT BEDSIDE. SPOUSE AT BEDSIDE.
[2020-01-14 13:15] VITALS: BP 132/82
[2020-01-14] MEDS ORDERED: SIMETHICONE 80 MG (MYLICON) CHEW ONE (13:57)
--- NOTE | 2020-01-14 14:00 | NUR ---
PT HAS AMBULATED IN THE MAC FREQUENTLY TODAY. C/O GAS PAIN.
[2020-01-14] MEDS: SIMETHICONE 80 MG (MYLICON) CHEW PO PRN ×2 (14:06→21:36)
[2020-01-14 18:15] VITALS: BP 120/79
--- NOTE | 2020-01-14 18:15 | NUR ---
VSS. CONTINUES TO CARE FOR IN ROOM. DENIES DESIRE FOR LORTAB.
[2020-01-14 21:30] VITALS: BP 114/70
--- NOTE | 2020-01-15 00:03 | NUR ---
Report to tara KELSEY
--- NOTE | 2020-01-15 00:50 | NUR ---
Pt et infant sleeping soundly at this time.
[2020-01-15 04:05] VITALS: BP 104/70
[2020-01-15] MEDS: IBUPROFEN 600 MG (MOTRIN) TAB PO SCH ×2 (04:06→10:29)
--- NOTE | 2020-01-15 08:36 | Postpartum Progress Note ---
Note Note Day # 2 Subjective: Patient is without complaints. Ambulating, voiding. Tolerating a regular diet without nausea or vomiting. Normal lochia. Pain is well controlled with oral pain medications. Objective: Physical Exam: General - Alert and oriented, no apparent distress Abdomen - Soft, appropriately tender to palpation, non-distended, fundus firm at umbilicus Extremities - no edema, negative Vincent's bilaterally Incision- c/d/i Assessment: POD 2 RLTCS Acute blood loss anemia Plan: Routine care. Encourage breast feeding. Encourage ambulation. Ferrous sulfate supplementation. Plan for discharge today Vitals - Labs Vital Signs - I&O Vital Signs Date Time Temp Pulse Resp B/P (MAP) Pulse Ox O2 Delivery O2 Flow Rate FiO2 01/15/20 04:05 36.9 87 20 104/70 (81) 100 Room Air 01/14/20 21:30 36.5 77 18 114/70 (85) 97 Room Air 01/14/20 18:15 36.6 89 18 120/79 (93) 100 Room Air 01/14/20 13:15 36.5 81 18 132/82 (99) 100 Room Air I & O 01/15/20 07:00 Intake Total 1240 ml Output Total 1400 ml Balance -160 ml Labs Microbiology 01/13/20 MRSA Screen - Final, Complete MRSA not isolated LEA BECK DO Jan 15, 2020 8:36 am
[2020-01-15 08:50] VITALS: BP 126/72
[2020-01-15] MEDS: DOCUSATE SODIUM 100 MG (COLACE) CAP PO SCH (10:29)
--- NOTE | 2020-01-15 13:30 | NUR ---
FATIMAH RINCON demonstrates understanding of discharge instructions and accurately returns instructions upon questioning. Copy of Post-Discharge Instructions and Medication Discharge Instructions given to patient. FATIMAH RINCON is able to manage continuing needs after discharge. Patients belongings returned to patient. Skin dry and intact; no breakdown noted. Patient discharged from 3308-1 on01/15/20 at 1330 . FATIMAH RINCON left floor via ambulation, accompanied by [facility].
== END 2020-01-15 13:30 | disposition home or self-care (01) | DRG 787 ==
LOC: LDRP 09:59
PROVIDERS: ADMIT Obstetrics & Gynecology; ATTEND Obstetrics & Gynecology
PROC: 10D00Z1 Extraction of Products of Conception, Low, Open Approach (ICD-10-PCS; principal; 2020-01-13 12:23)
DX: O34.211 Maternal care for low transverse scar from previous cesarean delivery (principal); D62 Acute posthemorrhagic anemia; O90.81 Anemia of the puerperium; O99.343 Other mental disorders complicating pregnancy, third trimester; F41.9 Anxiety disorder, unspecified; Z3A.39 39 weeks gestation of pregnancy; Z37.0 Single live birth
CPT/HCPCS: 36415; 85025; 86850; 86900; 86901; 87081; 94664